=== PATIENT | male | born 1995 | race Caucasian/White ===

== ENCOUNTER 2019-03-20 17:27 | Emergency (ER) | payer OTHER, SELFPAY ==
[2019-03-20 17:29] VITALS: BP 142/89; PULSE 86; RESP 16; TEMP 37.1; O2SAT 97; BMI 22.3
--- NOTE | 2019-03-20 17:38 | RAD_ITS ---
STUDY: X-RAY - RIGHT FOOT CLINICAL: Male, 23 years old. Pain TECHNIQUE: 3 view(s) of the foot. COMPARISON: None. FINDINGS: There is no evidence of fracture or dislocation. There are no significant degenerative changes. There are no radiodense foreign bodies. RAD/Foot min 3 Views IMPRESSION: No fracture or dislocation. Electronically Signed: John Bangura, at 18:18 EDT Tel , Service support ,
--- NOTE | 2019-03-20 17:38 | RAD_ITS ---
STUDY: X-RAY - RIGHT RADIUS AND ULNA REASON FOR EXAM: Male, 23 years old. Right arm pain TECHNIQUE: 2 view(s) of the forearm. COMPARISON: None. FINDINGS: There is no evidence of fracture or dislocation. There are no significant degenerative changes. There are no radiodense foreign bodies. RAD/Forearm 2 Views IMPRESSION: No fracture or dislocation. Electronically Signed: John Bangura, at 18:15 EDT Tel , Service support ,
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
--- NOTE | 2019-03-20 17:45 | RAD_ITS ---
STUDY: X-RAY - RIGHT ANKLE REASON FOR EXAM: Male, 23 years old. Pain TECHNIQUE: 3 view(s) of the ankle. COMPARISON: None. FINDINGS: There is no evidence of fracture or dislocation. There are no significant degenerative changes. There are no radiodense foreign bodies. Soft tissue swelling is present over the medial malleolus. RAD/Ankle min 3 Views IMPRESSION: No fracture or dislocation. Soft tissue swelling over the medial malleolus. Electronically Signed: John Bangura, at 18:16 EDT Tel , Service support ,
[2019-03-20] MEDS: HYDROcodone Bitartrate/Apap 5/325 Tablet PO (18:14)
[2019-03-20] MEDS: Diphth,Pertuss(Acell),Tet Vac 0.5 ML Vial IM (18:14)
--- NOTE | 2019-03-20 18:40 | ED.DEP ---
ED Disposition - Plan for ED Patient: Instructions: Sprain, Ankle, with X-Ray Prescriptions: Hydrocodone Bitart/Apap 5-325 [[place] 5MG-325MG] 1 tablet PO Q6H PRN PRN 3 Days #10 tablet PRN Reason: Pain Referrals: Eddie Benton MD [NON-STAFF] -
== END 2019-03-20 18:56 | disposition home or self-care (01) ==
LOC: ED 18:32
PROVIDERS: Emergency Provider Emergency Medicine
DX: S50.811A Abrasion of right forearm, initial encounter (principal); S99.911A Unspecified injury of right ankle, initial encounter; Z23 Encounter for immunization; V23.4XXA Motorcycle driver injured in collision with car, pick-up truck or van in traffic accident, initial encounter; Y93.55 Activity, bike riding; Y92.410 Unspecified street and highway as the place of occurrence of the external cause; Y99.8 Other external cause status
CPT/HCPCS: 73090; 73610; 73630; 90715; 99285